=== PATIENT | female | born 1995 | race American Indian/Alaskan Native ===

== ENCOUNTER 2016-07-28 12:24 | Emergency (ER) | payer SELFPAY ==
[2016-07-28 12:32] VITALS: BP 120/70
--- NOTE | 2016-07-28 15:18 | Emergency Department Report ---
- General Chief Complaint: Upper Respiratory Infection Stated Complaint: DIARRHEA/SORE THROAT/RUNNING NOSE Time Seen by Provider: 07/28/16 15:12 Source: patient Mode of arrival: Ambulatory Limitations: No Limitations - History of Present Illness Initial Comments: 21-year-old female comes in for complaint of upper respiratory infection. Patient reports that she's had a sore throat and runny nose and sneezing 3 weeks. Patient reports that she started diarrhea yesterday. She denies any nausea vomiting she does admit to body aches and no appetite as well as a cough. Patient reports that she has taken just some cough medicines twice TheraFlu twice in the past 3 weeks. - Related Data Previous Rx's Medication Instructions Recorded Last Taken Type Cetirizine HCl [ZyrTEC] 10 mg PO QDAY #30 capsule 07/28/16 Unknown Rx Fluticasone [Flonase] 1 spray NS QDAY #1 bottle 07/28/16 Unknown Rx Sulfamethoxazole/Trimethoprim 1 each PO BID #20 tablet 07/28/16 Unknown Rx [Bactrim DS TAB] Allergies Allergy/AdvReac Type Severity Reaction Status Date / Time No Known Allergies Allergy Unverified 07/28/16 12:34 ED Review of Systems ROS: Stated complaint: DIARRHEA/SORE THROAT/RUNNING NOSE Other details as noted in HPI Constitutional: denies: chills, fever ENT: throat pain, dental pain Respiratory: cough Gastrointestinal: diarrhea. denies: abdominal pain, nausea, vomiting ED Past Medical Hx - Past Medical History Previous Medical History?: No - Surgical History Past Surgical History?: No - Social History Smoking Status: Never Smoker Substance Use Type: None - Medications Home Medications: Home Medications Medication Instructions Recorded Confirmed Last Taken Type Cetirizine HCl [ZyrTEC] 10 mg PO QDAY #30 capsule 07/28/16 Unknown Rx Fluticasone [Flonase] 1 spray NS QDAY #1 bottle 07/28/16 Unknown Rx Sulfamethoxazole/Trimethoprim 1 each PO BID #20 tablet 07/28/16 Unknown Rx [Bactrim DS TAB] ED Physical Exam - General Limitations: No Limitations General appearance: alert, in no apparent distress - Head Head exam: Present: atraumatic, normocephalic - Eye Eye exam: Present: normal appearance, PERRL - ENT ENT exam: Present: mucous membranes moist, TM's normal bilaterally, other ( maxillary tenderness) - Neck Neck exam: Present: normal inspection, full ROM. Absent: tenderness, lymphadenopathy, thyromegaly - Respiratory Respiratory exam: Present: normal lung sounds bilaterally - Cardiovascular Cardiovascular Exam: Present: regular rate, normal rhythm ED Course Vital Signs 07/28/16 12:30 Temperature 98 F Pulse Rate 76 Blood Pressure 120/70 O2 Sat by Pulse 100 Oximetry ED Medical Decision Making - Medical Decision Making Evaluated by this provider. We will discharge patient on antibiotics for sinus infection as well as place the patient on Zyrtec's daily Flonase daily and over- the-counter cough syrup. He verbalized understanding. Critical care attestation.: If time is entered above; I have spent that time in minutes in the direct care of this critically ill patient, excluding procedure time. ED Disposition Clinical Impression: Sinusitis Qualifiers: Sinusitis location: maxillary Chronicity: acute Recurrence: not specified as recurrent Qualified Code(s): J01.00 - Acute maxillary sinusitis, unspecified Disposition: DISCHARGED TO HOME OR SELFCARE Is pt being admited?: No Does the pt Need Aspirin: No Condition: Stable Instructions: Acute Bacterial Rhinosinusitis (ED) Additional Instructions: Patient to get some [id number] Robitussin-DM for cough. Prescriptions: Sulfamethoxazole/Trimethoprim [Bactrim DS TAB] 1 each PO BID #20 tablet Fluticasone [Flonase] 1 spray NS QDAY #1 bottle Cetirizine HCl [ZyrTEC] 10 mg PO QDAY #30 capsule Referrals: PRIMARY CARE, [Primary Care Provider] - 3-5 Days [facility] [Outside] - 3-5 Days
== END 2016-07-28 15:57 | disposition home or self-care (01) ==
LOC: ED 12:24
DX: J01.00 Acute maxillary sinusitis, unspecified (principal)
CPT/HCPCS: 99282

== ENCOUNTER 2017-04-20 02:40 | Observation (INO) | payer OTHER, MEDICAID ==
[2017-04-20] MEDS ORDERED: LACTATED RINGERS 1,000 ML IV ONE (02:51)
[2017-04-20] MEDS ORDERED: TUMS PO ONE (03:24)
[2017-04-20] MEDS ORDERED: TYLENOL PO ONE (03:24)
[2017-04-20] MEDS ORDERED: LACTATED RINGERS 500 ML IV ONE (03:26)
[2017-04-20] MEDS: BRETHINE SUB-Q SCH ×2 (03:42→04:18)
[2017-04-20] MEDS ORDERED: BRETHINE ONE (03:42)
[2017-04-20 03:49] LABS: Bilirubin,Urine NEG (Negative); Blood,Urine NEG (Negative); Ketones,Urine NEG (Negative); Leukocyte Esterase,Urine NEG (Negative); Mucus,Urine FEW /HPF; Nitrite,Urine NEG (Negative); Protein,Urine <15 mg/dL mg/dL (Negative); Urobilinogen,Urine < 2.0 mg/dL (<2.0)
[2017-04-20 04:00] LABS: Basophils % (Auto) 0.3 % (0.0-1.8); Eosinophils % (Auto) 0.7 % (0.0-4.3); Hemoglobin 10.4 gm/dl (10.1-14.3); Mean Corpuscular HGB Conc 34 % (30-34); Mean Corpuscular Hemoglobin 27 pg (28-32); Mean Corpuscular Volume 79 fl (79-97); Red Blood Count 3.92 M/mm3 (3.65-5.03); Red Cell Distribution Width 13.5 % (13.2-15.2); White Blood Count 7.9 K/mm3 (4.5-11.0)
[2017-04-20 04:26] LABS: Platelet Count 70 K/mm3 (140-440)
[2017-04-20] MEDS ORDERED: MAGNESIUM SULFATE 4GM/100ML 4 GM/100 ML BAG IV ONE (04:55)
[2017-04-20] MEDS: LACTATED RINGERS 1,000 ML IV SCH ×2 (05:53→20:06)
[2017-04-20] MEDS: CELESTONE SOLUSPAN IM SCH (05:54)
[2017-04-20 06:04] LABS: HIV-1 Antigen p24 Non React (Non React); HIVR-1/2 Ab Non React (Non React)
[2017-04-20] MEDS: MAGNESIUM SULFATE 40GM/1000ML 40 GM/1,000 ML BAG IV SCH (06:20)
[2017-04-20 06:37] LABS: Urine Drugs of Abuse Note Disclamer
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
[2017-04-20] MEDS ORDERED: ZOFRAN IV PRN (09:00)
[2017-04-20] MEDS ORDERED: AMBIEN PO PRN (09:00)
[2017-04-20] MEDS ORDERED: COLACE PO PRN (10:00)
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
[2017-04-20] MEDS: PRENATAL VITAMIN PO SCH (10:29)
[2017-04-20] MEDS: TYLENOL PO PRN ×2 (11:52→20:05)
[2017-04-20] MEDS ORDERED: TUMS PO PRN (15:04)
[2017-04-20] MEDS ORDERED: SUBLIMAZE ONE (22:42)
[2017-04-20] MEDS ORDERED: SUBLIMAZE IV ONE (22:43)
[2017-04-21] MEDS: MAGNESIUM SULFATE 40GM/1000ML 40 GM/1,000 ML BAG IV SCH (02:44)
[2017-04-21] MEDS: CELESTONE SOLUSPAN IM SCH (05:12)
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
[2017-04-21 09:06] LABS: Basophils % (Auto) 0.1 % (0.0-1.8); Hematocrit 29.7 % (30.3-42.9); Hemoglobin 9.9 gm/dl (10.1-14.3); Mean Corpuscular HGB Conc 34 % (30-34); Mean Corpuscular Hemoglobin 27 pg (28-32); Mean Corpuscular Volume 80 fl (79-97); Red Blood Count 3.72 M/mm3 (3.65-5.03); Red Cell Distribution Width 13.4 % (13.2-15.2); White Blood Count 11.8 K/mm3 (4.5-11.0)
[2017-04-21 09:09] LABS: Platelet Count 77 K/mm3 (140-440)
[2017-04-21 09:21] LABS: Alanine Aminotransferase 12 units/L (7-56); Albumin 3.4 g/dL (3.9-5); Albumin/Globulin Ratio 1.2 %; Alkaline Phosphatase 133 units/L (35-129); Anion Gap 21 mmol/L; BUN/Creatinine Ratio 18.33; Blood Urea Nitrogen 11 mg/dL (7-17); Calcium 8.3 mg/dL (8.4-10.2); Carbon Dioxide 20 mmol/L (22-30); Chloride 101.8 mmol/L (98-107); Glucose 117 mg/dL (65-100); Potassium 4.3 mmol/L (3.6-5.0); Sodium 138 mmol/L (137-145); Total Protein 6.3 g/dL (6.3-8.2)
[2017-04-21] MEDS: PRENATAL VITAMIN PO SCH (12:00)
[2017-04-21 12:05] VITALS: BP 128/76
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
== END 2017-04-21 14:40 | disposition home or self-care (01) ==
LOC: TRG 02:40 → LD 05:03 → TRG 06:56 → LD 06:57
PROVIDERS: ADMIT Obstetrics & Gynecology; ATTEND Obstetrics & Gynecology
DX: O99.113 Other diseases of the blood and blood-forming organs and certain disorders involving the immune mechanism complicating pregnancy, third trimester (principal); O26.873 Cervical shortening, third trimester; O60.03 Preterm labor without delivery, third trimester; O99.513 Diseases of the respiratory system complicating pregnancy, third trimester; J45.909 Unspecified asthma, uncomplicated; Z3A.33 33 weeks gestation of pregnancy
CPT/HCPCS: 36415; 76815; 76819; 80053; 80307; 81001; 83735; 85025; 86592; 86706; 86762; 86803; 86850; 86900; 86901; 87806; 96361; 96365; 96366; 96372; 96375; G0378; J0702; J3010; J3105; J3475; J7120

== ENCOUNTER 2017-04-29 01:57 | Outpatient (CLI) | payer MEDICAID ==
[2017-04-29] MEDS ORDERED: LACTATED RINGERS 1,000 ML ONE (02:16)
[2017-04-29] MEDS ORDERED: LACTATED RINGERS 500 ML IV ONE (02:49)
[2017-04-29] MEDS ORDERED: LACTATED RINGERS 1,000 ML IV ONE (02:57)
[2017-04-29] MEDS: BRETHINE SUB-Q SCH ×2 (03:08→03:48)
[2017-04-29 04:18] VITALS: BP 136/77
[2017-04-29 04:22] LABS: Bacteria,Urine 1+ /HPF (Negative); Bilirubin,Urine NEG (Negative); Blood,Urine NEG (Negative); Ketones,Urine NEG (Negative); Leukocyte Esterase,Urine TR (Negative); Nitrite,Urine NEG (Negative); Protein,Urine <15 mg/dL mg/dL (Negative); Urobilinogen,Urine < 2.0 mg/dL (<2.0)
== END 2017-04-29 04:38 | disposition home or self-care (01) ==
LOC: TRG 01:57
PROVIDERS: ATTEND Obstetrics & Gynecology
DX: O62.9 Abnormality of forces of labor, unspecified (principal); Z87.891 Personal history of nicotine dependence; Z3A.34 34 weeks gestation of pregnancy
CPT/HCPCS: 81001; 96360; 96361; 96369; 96370; J3105; J7120